=== PATIENT | female | born 1960 | race Caucasian/White ===

== ENCOUNTER 2017-11-05 13:16 | Emergency (ER) | payer MEDICAID, OTHER | END 2017-11-05 15:12 | disposition home or self-care (01) | LOC: FTE 13:16 | DX: B35.4 Tinea corporis (principal) | CPT/HCPCS: 99284; Z7502 ==

== ENCOUNTER 2018-09-22 00:58 | Emergency (ER) | payer SELFPAY, MEDICAID ==
[2018-09-22] MEDS: morphine 4 MG/ML VIAL IV (01:32)
[2018-09-22] MEDS: CEFAZOLIN 2 GM/50 ML (PMX) 50 ML IVPB (01:32)
[2018-09-22] MEDS: ONDANSETRON 4 MG INJ IV (01:32)
[2018-09-22 01:39] LABS: ADD MAN DIFF? NO
[2018-09-22 01:42] LABS: BASOPHIL # 0.1 10^3/ul (0.0-0.1); BASOPHILS % 1.2 % (0.0-2.0); EOSINOPHILS # 0.2 10^3/ul (0.0-0.5); EOSINOPHILS % 2.1 % (0.0-7.0); HEMATOCRIT 34.7 % (37.0-47.0); HEMOGLOBIN 11.7 g/dl (12.0-16.0); LYMPHOCYTES # 3.6 10^3/ul (0.8-2.9); LYMPHOCYTES % 40.4 % (15.0-51.0); MEAN CORPUSCULAR HGB CONC 33.7 g/dl (32.0-37.0); MEAN CORPUSCULAR VOLUME 100.9 fl (82.0-101.0); MONOCYTES % 11.5 % (0.0-11.0); NEUTROPHILS % 44.4 % (39.0-77.0); PLATELET COUNT 230 10^3/UL (140-415); RED BLOOD COUNT 3.44 10^6/ul (4.20-5.40); RED CELL DISTRIBUTION WIDTH 11.7 % (11.5-14.5)
[2018-09-22 02:03] LABS: INR 0.86; PROTIME 11.8 Sec (11.9-14.9); PT RATIO 0.9
[2018-09-22 02:22] LABS: ANION GAP 14 (5-13); BLOOD UREA NITROGEN 12 mg/dl (7-20); CARBON DIOXIDE 26 mmol/L (21-31); CHLORIDE 105 mmol/L (97-110); CREATININE 0.53 mg/dl (0.44-1.00); Estimated GFR > 60 mL/min (>60); GLUCOSE 153 mg/dl (70-220); POTASSIUM 3.4 mmol/L (3.5-5.1); SODIUM 145 mmol/L (135-144)
== END 2018-09-22 06:04 | disposition short-term general hospital (02) ==
LOC: E/R 00:58
DX: S31.604A Unspecified open wound of abdominal wall, left lower quadrant with penetration into peritoneal cavity, initial encounter (principal); W18.39XA Other fall on same level, initial encounter; Y92.9 Unspecified place or not applicable
CPT/HCPCS: 36415; 80048; 80307; 85025; 85610; 85730; 86850; 86900; 86901; 96374; 96375; 99285-25